=== PATIENT | male | born 2005 | race Caucasian/White ===

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

== ENCOUNTER 2024-04-12 17:00 | Emergency (ER) | payer OTHER ==
--- OUTSIDE RECORDS SUMMARY | 2024-04-12 17:03 | XMS REPORT | Continuity of Care Document ---
Author Name Unknown Address [address] [facility] [facility] [address] [place] [address] [facility] thconnect Address [address] [place] [address] Care Team Providers Care Department Store Salesperson Name Role Phone Wei Weiss Primary Care Physician [phone] JC GARZON Attending Clinician Unavailable Jc Garzon MD Attending Clinician [phone] Jovan Rhodes MD Attending Clinician [phone] Only, Adc Test Attending Clinician Unavailable Jose De Jesus Zaman MD Attending Clinician [phone] Doctor Unassigned, [place] Attending Clinician U navailable JC GARZON Admitting Clinician Unavailable Jc Garzon MD Admitting Clinician [phone] Payers Payer Name Policy Type Policy Number Effective Date Expirati on Date Source [employer] [id number] 2016 00:00:00 [employer] [place] OUT OF STATE [id number] 2017 00:00:00 Problems Condition Name Condition Details Condition Category Status Onset Date Resolution Date Last Treatment Date Treating Clinician Comments Source Non-recurr ent inguinal hernia without obstructio n or gangrene, unspecifie d laterality Non-recurr ent inguinal hernia without obstructio n or gangrene, unspecifie d laterality Disease Active 05-16 00:00: 00 Overview: Formattin g of this note might be different from the original. Added automatic ally from request for surgery [id number] [facility] No known active problems No known active problems Disease [facility] Allergies, Adverse Reactions, Alerts Allergy Name Allergy Type Status Severity Reaction(s) Onset Date Inactive Date Treating Clinician Comments Source NO KNOWN ALLERGIE S Drug Class Active [facility] Social History Social Habit Start Date Stop Date Quantity Comments Source [facility] to SARS-CoV-2 (event) 2022-10-14 00:00:00 2022-10-24 08:49:00 Not sure [facility] History of Social function 2020-06-08 00:00:00 2020-06-08 00:00:00 [facility] Tobacco use and exposure 2020-06-08 00:00:00 2020-06-08 00:00:00 Never used [facility] Sex Assigned At 2005 00:00:00 2005 00:00:00 [facility] Smoking Status Start Date Stop Date Source Tobacco smoking consumption unknown [facility] Never smoker [facility] Medications Ordered Medication Name Filled Medication Name Start Date Stop Date Current Medication? Ordering Clinician Indication Dosage Frequency Signature (SIG) Comments Components Source guanFACINE (Intuniv) 3 mg 24 hr tablet 10-24 09:08: 24 Yes Take by mouth. [facility] sertraline (Zoloft) 100 MG tablet 10-24 09:08: 24 Yes 100mg Take 100 mg by mouth. [facility] ARIPiprazol e (Abilify) 5 MG tablet 10-24 09:08: 24 Yes 5mg Take 5 mg by mouth. [facility] cloNIDine (Catapres) 0.2 MG tablet 10-24 09:08: 24 Yes .2mg Take 0.2 mg by mouth. [facility] Flovent HFA 110 MCG/ACT inhaler 10-16 00:00: 00 Yes [facility] cetirizine (ZyrTEC) 10 MG tablet 10-01 00:00: 00 Yes 10mg QD Take 10 mg by mouth 1 (one) time each day. [facility] Adderall XR 25 MG 24 hr capsule 2023-0 2-13 00:00: 00 Yes [facility] albuterol (2.5 MG/3ML) 0.083% nebulizer solution 1-31 00:00: 00 Yes INHALE 1 VIAL EVERY FOUR TO SIX HOURS NEEDED [facility] carBAMazepi ne (TEGretol) 200 MG tablet 2021-08 2-14 00:00: 00 Yes 200mg Q.5D Take 200 mg by mouth in the morning and 200 mg before bedtime. [facility] QUEtiapine (SEROquel) 100 MG tablet 8-05 00:00: 00 Yes Take 1.5 tablets by mouth nightly [facility] ARIPiprazol e (ABILIFY) 5 mg tablet 2019-08 0 21:07: 49 Yes 5mg Take 5 mg by mouth daily. [facility] Guanfacine (INTUNIV) 3 mg Tb24 2019-08 0 21:07: 49 Yes Take by mouth. [facility] amphetamine -dextroamph etamine (AMPHETAMIN E SALT COMBO) 5 mg tablet 2019-08 21:07: 49 Yes 25mg Take 25 mg by mouth daily. [facility] cloNIDine 0.2 mg tablet 2019-08 21:07: 49 Yes .2mg Take 0.2 mg by mouth at bedtime. [facility] SERTraline (ZOLOFT) 100 mg tablet 2019-08 21:07: 49 Yes 100mg Take 100 mg by mouth daily. [facility] SERTraline (ZOLOFT) 25 mg tablet 2019-08 21:07: 49 Yes 25mg Take 25 mg by mouth at bedtime. [facility] fluticasone propionate (FLOVENT INHALE) 2019-08 0 21:07: 49 Yes Inhale 2 (two) times daily. [facility] albuterol sulfate (PROVENTIL INHALE) 2019-08 0 21:07: 49 Yes Inhale as needed. [facility] carBAMazepi ne (TEGRETOL) 200 mg tablet 2019-08 0 21:07: 49 Yes 200mg Take 200 mg by mouth every 12 (twelve) hours. [facility] risperiDONE 0.5 mg tablet 2019-08 21:07: 49 Yes .5mg Take 0.5 mg by mouth daily. [facility] ibuprofen (ADVIL CHILDREN'S) 100 mg/5 mL suspension 635 mg 2019-08 20:46: 21 Yes 10mg/kg 635 mg (10 mg/kg ?63.5 kg), Oral, Q6HPRN, Starting Sat06/07/20 at 1546, Until Discontinu ed, Routine, Pain (scale 1-3), DSU Recovery [facility] FENTanyl PF (SUBLIMAZE (PF)) injection 25 mcg 2019-08 19:41: 01 Yes 25ug 25 mcg, Slow IV Push, Q5MIN PRN, 4 doses, Starting Sat06/07/20 at 1441, Until Discontinu ed, Routine, Pain (scale 7-10), PACU [facility] ondansetron (ZOFRAN (PF)) injection 4 mg 2019-08 19:41: 01 Yes 4mg 4 mg, Slow IV Push, PRN, 1 dose, Starting 06/07/20 at 1441, Until Discontinu ed, Routine, Nausea and Vomiting (N/V), PACU [facility] bupivacaine (preserv free) (SENSORCAIN E MPF) 0.25 % (2.5 mg/mL) injection 2019-08 18:51: 00 Yes PRN, Starting Sat06/07/20 at 1351, Until Discontinu ed, Routine, Intra-op [facility] ARIPiprazol e (ABILIFY) 5 mg tablet 2019-08 16:07: 49 Yes 5mg Take 5 mg by mouth daily. [facility] Guanfacine (INTUNIV) 3 mg Tb24 2019-08 16:07: 49 Yes Take by mouth. [facility] amphetamine -dextroamph etamine (AMPHETAMIN E SALT COMBO) 5 mg tablet 2019-08 16:07: 49 Yes 25mg Take 25 mg by mouth daily. [facility] cloNIDine 0.2 mg tablet 2019-08 16:07: 49 Yes .2mg Take 0.2 mg by mouth at bedtime. [facility] SERTraline (ZOLOFT) 100 mg tablet 2019-08 16:07: 49 Yes 100mg Take 100 mg by mouth daily. [facility] SERTraline (ZOLOFT) 25 mg tablet 2019-08 16:07: 49 Yes 25mg Take 25 mg by mouth at bedtime. [facility] fluticasone propionate (FLOVENT INHALE) 2019-08 16:07: 49 Yes Inhale 2 (two) times daily. [facility] carBAMazepi ne (TEGRETOL) 200 mg tablet 2019-08 16:07: 49 Yes 200mg Take 200 mg by mouth every 12 (twelve) hours. [facility] risperiDONE 0.5 mg tablet 2019-08 16:07: 49 Yes .5mg Take 0.5 mg by mouth daily. [facility] HYDROcodone -acetaminop hen (NORCO) 5-325 mg tablet 2019-08 00:00: 00 Yes [id number] 1{tbl} Take 1 tablet by mouth every 6 (six) hours as needed for Pain (scale 4-6). Indication s: acute pain [facility] acetaminoph en (TYLENOL) 325 mg tablet 2019-08 00:00: 00 06-07 00:00 :00 No [id number] 650mg Take 2 tablets by mouth every 6 (six) hours as needed for Pain (scale 1-3). [facility] ibuprofen (MOTRIN IB) 200 mg tablet 2019-08 00:00: 00 06-07 00:00 :00 No [id number] 400mg Take 2 tablets by mouth every 6 (six) hours as needed for Pain (scale 1-3). [facility] cloNIDine 0.2 mg tablet 2019-08 12:50: 48 Yes .2mg Take 0.2 mg by mouth at bedtime. [facility] SERTraline (ZOLOFT) 100 mg tablet 2019-08 12:50: 48 Yes 100mg Take 100 mg by mouth daily. [facility] SERTraline (ZOLOFT) 25 mg tablet 2019-08 12:50: 48 Yes 25mg Take 25 mg by mouth at bedtime. [facility] fluticasone propionate (FLOVENT INHALE) 2019-08 12:50: 48 Yes Inhale 2 (two) times daily. [facility] albuterol sulfate (PROVENTIL INHALE) 2019-08 12:50: 48 Yes Inhale as needed. [facility] carBAMazepi ne (TEGRETOL) 200 mg tablet 2019-08 12:50: 48 Yes 200mg Take 200 mg by mouth every 12 (twelve) hours. [facility] risperiDONE 0.5 mg tablet 2019-08 12:50: 48 Yes .5mg Take 0.5 mg by mouth daily. [facility] Guanfacine (INTUNIV) 3 mg Tb24 2019-08 20:52: 50 Yes Take by mouth. [facility] amphetamine -dextroamph etamine (AMPHETAMIN E SALT COMBO) 5 mg tablet 2019-08 20:52: 50 Yes 25mg Take 25 mg by mouth daily. [facility] ARIPiprazol e (ABILIFY) 5 mg tablet 2019-08 20:49: 06 Yes 5mg Take 5 mg by mouth daily. [facility] ARIPiprazol e (ABILIFY) 5 mg tablet 02-21 15:38: 54 Yes 5mg Take 5 mg by mouth daily. [facility] Guanfacine (INTUNIV) 3 mg Tb24 02-21 15:38: 54 Yes Take by mouth. [facility] amphetamine -dextroamph etamine (AMPHETAMIN E SALT COMBO) 5 mg tablet 02-21 15:38: 54 Yes 5mg Take 5 mg by mouth daily. [facility] Vital Signs Vital Name Observation Time Observation Value Comments S riki Body height 2022-10-24 15:02:00 [facility] Body weight 2022-10-24 15:02:00 [facility].4 [facility] BMI 2022-10-24 15:02:00 28.26 kg/m2 [facility] Body mass index (BMI) [Percentile] Per age and sex 2022-10-24 15:02:00 92.98 % [facility] Body temperature 2020-07-04 20:58:00 36.94 [facility] Body weight 2020-07-04 20:58:00 64.9 kg [facility] Systolic blood pressure 2020-06-07 20:30:00 110 mm[Hg] [facility] Diastolic blood pressure 2020-06-07 20:30:00 72 mm[Hg] [facility] Heart rate 2020-06-07 20:30:00 67 /min [facility] Respiratory rate 2020-06-07 20:30:00 6 /min [facility] Oxygen saturation in Arterial blood by Pulse oximetry 2020-06-07 20:30:00 97 /min [facility] Body temperature 2020-06-07 19:30:00 35.78 [facility] Body height 2020-06-07 14:57:00 165.1 cm [facility] Body weight 2020-06-07 14:57:00 63.5 kg [facility] BMI 2020-06-07 14:57:00 23.30 kg/m2 [facility] Body temperature 2020-05-16 18:02:00 36.78 [facility] Body weight 2020-05-16 18:02:00 65 kg [facility] Procedures Procedure Date / Time Performed Performing Clinicia n Source US SCROTUM AND CONTENTS 2020-06-02 23:49:53 Jc Garzon [facility] CONSENT/REFUSAL FOR DIAGNOSIS AND TREATMENT 2020-06-02 21:48:04 Doctor Unassigned, [place] [facility] ASSIGNMENT OF BENEFITS 2020-06-02 21:47:48 Dockev r Unassigned, [place] [facility] ASSIGNMENT OF BENEFITS 2020-05-16 17:47:57 Jimto r Unassigned, [place] [facility] POCT URINALYSIS AUTO 2020-05-16 00:00:00 Riki Garzon [facility] Encounters Start Date/Time End Date/Time Encounter Type Admission Type Attending [facility] Facility Care Department Encounter ID Source 2022-11-08 14:48:24 Outpatient [facility] [id number] [facility] 2022-10-24 08:51:46 Outpatient [facility] [id number] [facility] 2022-10-18 13:45:24 Outpatient [facility] [id number] [facility] 2021-06-16 22:22:44 Outpatient JENNIFER GARZONNATHAN [facility] [id number] [facility] 2021-06-16 19:49:14 Outpatient BECKY JC [facility] [id number] [facility] 2024-04-10 11:12:59 2024-04-10 11:12:59 Outpatient [facility] S[facility] [id number] Peter Baugh 2024-03-19 17:29:26 2024-03-19 17:29:26 Outpatient SFA SFA [id number] Peter Baugh 2020-06-02 00:00:00 2024-02-04 02:22:16 Mobile Device Encounter Jennifer Garzonnathan [facility] [id number] [id number] [facility] 2024-01-22 17:21:40 2024-01-22 17:21:40 Outpatient SFA SFA [id number] Peter Baugh 2023-11-15 15:42:08 2023-11-15 15:42:08 Outpatient SFA SFA [id number] Peter So Amauri 2023-11-01 13:17:23 2023-11-01 13:17:23 Outpatient SFA SFA [id number] Peter Baugh 2023-09-26 10:33:38 2023-09-26 10:33:38 Outpatient SFA SFA [id number] Peter So Amauri 2023-08-30 14:05:13 2023-08-30 14:05:13 Outpatient SFA SFA [id number] Peter Baugh 2023-06-20 13:49:02 2023-06-20 13:49:02 Outpatient SFA [facility] [id number] Peter Baugh 2023-04-17 13:00:19 2023-04-17 13:00:19 Outpatient SFA [facility] [id number] Peter Baugh 2022-12-26 15:45:32 2022-12-26 15:45:32 Outpatient SFA [facility] [id number] Peter So Amauri 2022-12-13 17:03:33 2022-12-13 17:03:33 Outpatient SFA [facility] [id number] Peter So Amauri 2022-12-04 14:48:51 2022-12-04 14:48:51 Outpatient SFA [facility] [id number] Peter Baugh 2022-11-15 13:54:59 2022-11-15 13:54:59 Outpatient SFA [facility] [id number] Peter So Amauri 2022-11-08 16:06:33 2022-11-08 16:06:33 Outpatient SFA [facility] [id number] Peter So Aamuri 2022-10-24 08:45:00 2022-10-24 14:10:43 Office Visit JaswantyinkaJovan [facility] [[email or web address] [id number] [facility] [id number] [facility] 2022-08-21 16:45:11 2022-08-21 16:45:11 Outpatient SFA [facility] [id number] Peter So [place] 2020-07-04 14:45:00 2020-07-04 14:45:00 Outpatient R JC GARZON [facility] [id number] [facility] 2020-07-04 14:28:36 2020-07-04 14:43:36 Office Visit Jc Garzon [facility] Office Building [id number] [id number] [id number] [facility] 2020-06-07 08:53:00 2020-06-07 15:50:00 Hospital Encounter BarnhartJc culp [facility] [id number] [id number] [id number] [id number] [facility] 2020-06-06 11:24:06 2020-06-06 11:39:06 Laboratory Only Only, Adc Test Jose De Jesus Zaman [facility] [id number] 350.1.13.10 [id number] [id number] [facility] 2020-06-06 11:15:00 2020-06-06 11:15:00 Outpatient R [facility] [id number] [facility] 2020-06-02 16:50:42 2020-06-02 23:59:00 Hospital Encounter Jennifer Garzonnathan [facility] [id number] [id number] [id number] [id number] [facility] 2020-05-16 12:48:48 2020-06-02 11:35:39 Office Visit Jc Garzon [facility] [id number] [id number] [id number] [id number] [facility] 2020-06-02 00:00:00 2020-06-02 00:00:00 Outpatient R BECKY JC [facility] [id number] [facility] 2020-05-16 13:00:00 2020-05-16 13:00:00 [id number] 2020-05-16 00:00:00 2020-05-16 00:00:00 Orders Only Doctor Unassigned, [place] [facility] [id number] [id number] [id number] [id number] [facility] 2020-05-16 00:00:00 2020-05-16 00:00:00 Letter (Out) Jc Garzon [facility] Building [id number] [id number] [id number] [id number] [facility] Results Test Description Test Time Test Comments Results Result Co mments Source TSH, THIRD [id number] 04:20:48* Test Item Value Reference Range Interpretation Comme nts TSH, THIRD GENERATION (test code = 2821) 0.802 UIU/ML 0.400-4.100 COMPREHENSIVE METABOLIC [id number] 04:20:16* Test Item Value Reference Range Interpretation Comme nts GLUCOSE (test code = 2217) 96 MG/DL 70-99 BUN (test code = 2207) 18 MG/DL 6-20 CREATININE (test code = 2214) 0.93 MG/DL 0.70-1.30 eGFR (2020 CKD-EPI) (test code = 36820) 121 ML/MIN/1.73 >60 CALC BUN/CREAT (test code = 2235) 19 RATIO 6-28 SODIUM (test code = 2231) 144 MEQ/L 133-146 POTASSIUM (test code = 2228) 4.5 MEQ/L 3.5-5.4 CHLORIDE (test code = 2215) 105 MEQ/L 95-107 CARBON DIOXIDE (test code = 2206) 23 MEQ/L 19-31 CALCIUM (test code = 2209) 9.8 MG/DL 8.5-10.5 PROTEIN, TOTAL (test code = 222) 7.3 G/DL 6.1-8.3 ALBUMIN (test code = 2201) 4.8 G/DL 3.5-5.2 CALC GLOBULIN (test code = 2240) 2.5 G/DL 2.0-3.5 CALC A/G RATIO (test code = 2234) 1.9 RATIO 1.0-2.6 BILIRUBIN, TOTAL (test code = 2207) 0.4 MG/DL <=1.2 ALKALINE PHOSPHATASE (test code = 2204) 97 U/L 56-182 AST (test code = 2218) 32 U/L 9-50 ALT (test code = 2219) 50 U/L 5-50 LIPID [id number] 04:20:16* Test Item Value Reference Range Interpretation Comme nts CHOLESTEROL (test code = 2210) 140 MG/DL <200 TRIGLYCERIDES (test code = 2232) 150 MG/DL <150 H HDL CHOLESTEROL (test code = 2220) 39 MG/DL >39 L CALC LDL CHOL (test code = 2237) 76 MG/DL <100 NOTE: CALCULATED LDL IS BASED ON REID-VALLADARES METHOD WHICHINCLUDES ADJUSTABLE TRIGLYCERIDE:VLDL CHOLESTEROL RATIO.THIS FACTOR VARIES BY MEASURED TRIGLYCERIDE AND NON-HDLCHOLESTEROL CONCENTRATIONS WITH INCREASED CALCULATED LDL SEENIN HIGHER TRIGLYCERIDE OR LOWER NON-HDL SPECIMENS. FOR MOREINFORMATION, SEE CLIENT ANNOUNCEMENT AT [email or web address] RISK RATIO LDL/HDL (test code = 2238) 1.95 RATIO <3.55 CBC W/AUTO DIFF WITH [id number] 03:03:55* Test Item Value Reference Range Interpretation [...] = 1065) 0.0 /100 WBC'S See_Comment [Automated Affinioa ge] The system which generated this result [...] 0.00-0.10 ABS NUCLEATED RBCS (test code = 97073) 0.00 K/UL 0.00-0.11 CT/NG, NAAT, [id number] 15:55:19* Test Item Value Reference Range Interpretation Comme nts CHLAMYDIA, NAAT, URINE (test code = 93656) NEGATIVE NEGATIVE Testing is perfo rmed with Brian NAILA 6800/8800 systems usingreal-time polymerase chain reaction (PCR) method. A negative result does not exclude low level infection, specimensampling error, or collection error. GONORRHEA, NAAT, URINE (test code = 62927) NEGATIVE NEGATIVE Testing is perfo rmed with Brian NAILA 6800/8800 systems usingreal-time polymerase chain reaction (PCR) method. A negative result does not exclude low level infection, specimensampling error, or collection error. RPR REFLEX TO T. PALLIDUM - [id number] 03:40:20* Test Item Value Reference Range Interpretation Comme nts RPR (test code = 31960) NON-REACTIVE NON-REACTIVE RPR TITER (test code = 3500) NOT INDIC. TITER NOT INDIC. HIV 1/2 4TH GEN, RFLX [id number] 03:36:50* Test Item Value Reference Range Interpretation Comme nts HIV 1/2 4TH GEN, RFLX CONF ( test code = 3514) NON-REACTIVE NON-REACTIVE HEPATITIS PANEL, [id number] 03:36:50* Test Item Value Reference Range Interpretation Comme nts HEPATITIS A IgM (test code = 98765) NON-REACTIVE NON-REACTIVE HEPATITIS B CORE IgM (test code = 4644) NON-REACTIVE NON-REACTIVE HEPATITIS B SURF AG (test code = 2739) NON-REACTIVE NON-REACTIVE HEPATITIS C ANTIBODY (test code = 4675) NON-REACTIVE NON-REACTIVE INTERPRETATION HEPATITIS A: (test code = 2552) (NOTE) Hepatitis A serology shows no evidence of acute hepatitis A. INTERPRETATION HEPATITIS B: (test code = 46129) (NOTE) Hepatitis B serology shows no evidence of acute hepatitis B andno indication of exposure to hepatitis B virus in the previous landon eight months. INTERPRETATION HEPATITIS C: (test code = 36966) (NOTE) Hepatitis C serology shows no evidence of exposure to hepatitisC virus at this time. It can take up to 12 months after exposure tothe hepatitis C virus for antibodies to become detectable in the blood in certain patients. HERPES SIMPLEX 1 AB, [id number] 03:36:50* Test Item Value Reference Range Interpretation Comme nts HERPES SIMPLEX 1 AB, IgG (test code = 39232) 7.400 INDEX SEE BELOW H INTERPRETATION U NITS RANGE ----- ----- NON-REACTIVE INDEX <1.000 REACTIVE INDEX >=1.000 HERPES SIMPLEX 2 AB, [id number] 03:36:50* Test Item Value Reference Range Interpretation Comme nts HERPES SIMPLEX 2 AB, IgG (test code = 31057) 0.072 INDEX SEE BELOW INTERPRETATION U NITS RANGE ----- ----- NON-REACTIVE INDEX <1.000 REACTIVE INDEX >=1.000 UNLESS OTHERWISE INDICATED, ALL TESTING PERFORMED AT [facility] [address] [place] [address] [employer] HELPER PRESERVES: NAVIN LAM M.D. CLIA NUMBER [id number] [facility] [place]. [id number] CULTURE, [id number] 16:27:10SPECIMEN NUMBER: [id number] CULTURE, URINE SPECIMEN NUMBER: [id number] SPECIMEN COMMENT: URINE SOURCE: URINE REPORT STATUS: FINAL ISOLATE NUMBER 1: IDENTIFICATION: 11/11/2022 10-50,000 CFU/ML STREPTOCOC CUS AGALACTIAE (GROUP B) ADDITIONAL OBSERVATIONS: PENICILLIN AND AMPICILLIN ARE DRUGS OF CHOICE FORTREATMENT OF B-HEMOLYTIC STREPTOCOCCAL INFECTIONS. SUSCEPTIBILITY TESTING OF PENICILLIN AND OTHER B-LACTAMS APPROVED BY THE [place] [employer]OD AND DRUG [employer]RATION FOR TREATMENT OF B-HEMOLYTIC STREPTOCOCCAL INFECTIONS NEED NOT BE PERFORMED ROUTINELY. ADDITIONAL OBSERVATIONS: 11/11/2022 <10,000 CFU/ML UROGENITAL ROSE PRESENT NO COMMON PATHOGENS [facility] has important pathology staff changes effective 10/17/2022. New pathology staff will provide uninterrupted, excellent patient care and clinical consultation. See URL: [email or web address]. UNLESS OTHERWISE INDICATED, ALL TESTING PERFORMED AT [facility] [address] [place] [address] [employer] HEL[employer] PRESERVES: NAVIN LAM M.D. CLIA NUMBER [id number] [place]. [id number], THIRD [id number] 06:15:03* Test Item Value Reference Range Interpretation Comme nts TSH, THIRD GENERATION (test code = 2821) 0.911 UIU/ML 0.500-4.300 [id number] 06:15:03* Test Item Value Reference Range Interpretation [...] 4.0-12.0 UNLESS OTHERWISE INDICATED, ALL TEST[facility] PERFORMED [facility] [address] [place] [address] [employer] HEL[employer] PRESERVES: SIRI COLEY M.D. CLIA NUMBER [id number] [place] [id number] LIPID [id number] 03:17:30* Test Item Value Reference Range Interpretation [...] SPECIMENS. FOR MOREINFORMATION, SEE CLIENT ANNOUNCEMENT AT [email or web address] /[email or web address] RISK RATIO LDL/HDL (test code = 2238) 2.37 RATIO <3.55 COMPREHENSIVE METABOLIC [id number] 03:17:30* Test Item Value Reference Range Interpretation Comme nts GLUCOSE (test code = 2217) 85 MG/DL 70-99 BUN (test code = 2207) 22 MG/DL 5-18 H CREATININE (test code = 221) 0.96 MG/DL 0.70-1.30 EFFECTIVE 07/31/2021, [facility] HAS IMPLEMENTED THE NKF-ASN RECOMMENDED KD-EPI EGFR REFIT CALCULATION THAT DOES NOT INCLUDE A COEFFICIENT FORRACE. FOR MORE INFORMATION, SEE ANNOUNCEMENT [email or web address] eGFR (2020 CKD-EPI) (test code = 11084) NO CALC ML/MIN/1.73 >60 NOTE: 2020 CKD-EPI [...] 95-107 CARBON DIOXIDE (test code = 2206) 29 MEQ/L 19-31 CALCIUM (test code = 2209) 10.3 MG/DL 8.4-10.2 H PROTEIN, TOTAL (test code = 2228) 8.2 G/DL 6.0-8.0 H ALBUMIN (test code = 2200) 5.1 G/DL 3.6-5.2 CALC GLOBULIN (test code = 2240) 3.1 G/DL 2.0-3.5 CALC A/G RATIO (test code = 2234) 1.6 RATIO 1.0-2.6 BILIRUBIN, TOTAL (test code = 7) 0.2 MG/DL See_Comment [Automated me ssage] The system which generated this result transmitted reference range: <=1.2. The reference range was not used to interpret this result as normal/abnormal. ALKALINE PHOSPHATASE (test code = 2204) 115 U/L 80-302 AST (test code = 2218) 15 U/L 9-55 ALT (test code = 2219) 19 U/L 5-50 HEMOGLOBIN [id number] 02:12:36* Test Item Value Reference Range Interpretation Comme nts HEMOGLOBIN A1c (test code = 54519) 5.0 % 4.2-5.6 CBC W/AUTO DIFF WITH [id number] 01:35:29* Test Item Value Reference Range Interpretation [...] 0.00-0.10 ABS NUCLEATED RBCS (test code = 19272) 0.00 K/UL 0.00-0.13 US SCROTUM AND [id number] 02:33:26No evidence for testicular torsion. No evidence for epididymo-orchitis. Questionable bowel loop in the superior right inguinal canal with Valsalvamaneuver. This may reflect an inguinal hernia, but issomewhat equivocal. RL: 460 AFC: [id number] Ordering physician: JC GARZON INDICATION: Right groin [...] inguinal hernia, but is somewhat equivocal.RL: 460AF: [id number] signed by Danielle Dubose MD, PhD at 06/02/2020 9:33 [facility] [id number] 18:10:00* Test Item Value Reference Range Interpretation [...] 3267) Lab Interpretation (test cod e = 39176-0) Normal [facility] URINALYSIS, [id number] 18:10:00 * Test Item Value Reference Range [...] 3267) Lab Interpretation (test cod e = [id number]) Normal [facility]
--- NOTE | 2024-04-12 17:41 | ER ---
Nurse's Notes [facility] [place], [place] Name: Avi Ellis Age: 18 yrs Sex: Male : 2005 Arrival Date: 04/12/2024 Time: 17:00 Bed IW8 Private MD: Diagnosis: Cutaneous abscess of right foot-paronychia, great toe Presentation: 04/12 17:37 Chief complaint: Patient states: "I have a toe infection for about 2 weeks". Pt reports aa5 pain and swelling around right great toenail. 17:37 Coronavirus screen: At this time, the client does not indicate any symptoms associated aa5 with coronavirus-19. Ebola Screen: Patient denies travel to an Ebola-affected area in the 21 days before illness onset. Initial Sepsis Screen: Does the patient meet any 2 criteria? No. Patient's initial sepsis screen is negative. Does the patient have a suspected source of infection? No. Patient's initial sepsis screen is negative. Risk Assessment: Do you want to hurt yourself or someone else? Patient reports no desire to harm self or others. Onset of symptoms was March 2024. 17:37 Acuity: ESTRADA 4 aa5 17:37 Method Of Arrival: Ambulatory aa5 Historical: - Allergies: 17:38 No Known Allergies; aa5 - PMHx: 17:38 Anxiety; Asthma; depressive disorder; aa5 - PSHx: 17:38 Adenoid excision; hernia repair; wisdom teeth (d ); aa5 - Immunization history:: Adult Immunizations unknown. - Infectious Disease History:: Denies. - Social history:: Smoking status: Patient denies any tobacco usage or history of. Vital Signs: 17:37 BP 124 / 86; Pulse 97; Resp 18 S; Temp 97.6(TE); Pulse Ox 99% on R/A; Weight 97.98 kg aa5 (R); Height 5 ft. 4 in. (R); 17:37 Body Mass Index 37.08 (97.98 kg, 162.56 cm) - Percentile 99.1 % aa5 ED Course: 17:04 Patient arrived in ED. ra3 17:31 [facility] kb 17:31 Ban Calhoun MD is Attending Physician. kb 17:37 Arm band placed on. aa5 17:40 Triage completed. aa5 Administered Medications: No medications were administered Outcome: 17:41 Discharge ordered by MD. arias 17:45 Patient left the ED. aa5 Signatures: Karlee Brower FNP-C FNP-Patti Mendoza, RN RN aa5 Elmira Li ra3 Corrections: (The following items were deleted from the chart) 17:41 17:37 BP 124 / 86; Pulse 97bpm; Resp 18bpm; Spontaneous; Pulse Ox 99% RA; Temp 97.6F aa5 Temporal; aa5
--- NOTE | 2024-04-12 17:41 | EDPHYS ---
Physician Documentation [facility] Name: Avi Ellis Age: 18 yrs Sex: Male : 2005 Arrival Date: 04/12/2024 Time: 17:00 Bed IW8 Private MD: ED Physician Ban Calhoun HPI: 04/12 17:44 This 18 yrs old Male presents to ER via Ambulatory with complaints of toe infection. kb 17:44 Pt is a 18 year old male who presents for infection in right great toe that started 2 kb weeks ago. States he just hasn't been able to come due to his work schedule. States the area started draining pus and blood yesterday. Denies fever. Historical: - Allergies: 17:38 No Known Allergies; aa5 - PMHx: 17:38 Anxiety; Asthma; depressive disorder; aa5 - PSHx: 17:38 Adenoid excision; hernia repair; wisdom teeth (d ); aa5 - Immunization history:: Adult Immunizations unknown. - Infectious Disease History:: Denies. - Social history:: Smoking status: Patient denies any tobacco usage or history of. ROS: 17:43 Constitutional: As per HPI kb Exam: 17:43 Constitutional: This is a well developed, well nourished patient who is awake, alert, kb and in no acute distress. Head/Face: Normocephalic, atraumatic. ENT: Moist Mucous membranes Cardiovascular: Regular rate Respiratory: Respirations even and unlabored. No increased work of breathing. Talking in full sentences MS/ Extremity: Pulses equal, no cyanosis. Neurovascular intact. Full, normal range of motion. Neuro: Awake and alert, GCS 15, oriented to person, place, time, and situation. Moves all extremities. Normal gait. 17:43 Skin: abscess, that is small, of the Right first toenail, with drainage, that is purulent, Vital Signs: 17:37 BP 124 / 86; Pulse 97; Resp 18 S; Temp 97.6(TE); Pulse Ox 99% on R/A; Weight 97.98 kg aa5 (R); Height 5 ft. 4 in. (R); 17:37 Body Mass Index 37.08 (97.98 kg, 162.56 cm) - Percentile 99.1 % aa5 MDM: 17:31 Patient medically screened. kb 17:44 Differential diagnosis: cellulitis, paronychia, abscess. Data reviewed: vital signs, kb nurses notes. Counseling: I had a detailed discussion with the patient and/or guardian regarding the historical points, exam findings, and any diagnostic results supporting the discharge/admit diagnosis, the need for outpatient follow up, a family practitioner, to return to the emergency department if symptoms worsen or persist or if there are any questions or concerns that arise at home. Administered Medications: No medications were administered Disposition Summary: 04/12/24 17:41 Discharge Ordered Notes: Location: Home kb Condition: Stable kb Diagnosis - Cutaneous abscess of right foot - paronychia, great toe kb Followup: kb - With: Emergency Department - When: As needed - Reason: Worsening of condition Followup: kb - With: Private Physician - When: 2 - 3 days - Reason: Recheck today's complaints, Continuance of care, Re-evaluation by your physician Discharge Instructions: - Discharge Summary Sheet kb - Paronychia, [id number] kb Forms: - Medication Reconciliation Form kb - Antibiotic Education kb - Prescription Opioid Use kb - Patient Portal Instructions kb - Leadership Thank You Letter kb Prescriptions: - Bactrim DS 800-160 mg Oral Tablet - take 1 tablet ORAL route every 12 hours for 10 days; 20 tablet; Refills: 0, kb Product Selection Permitted Signatures: Karlee Brower, FARNAZ ROMANP-Patti Mendoza, RN RN aa5
[2024-04-12 17:58] VITALS: BP 124/86; TEMP 97.6; O2SAT 99
== END 2024-04-12 17:45 | disposition home or self-care (01) ==
LOC: ER 17:00
DX: L03.031 Cellulitis of right toe (principal)
CPT/HCPCS: 99281

== ENCOUNTER 2024-12-12 16:18 | Emergency (ER) | payer OTHER, SELFPAY ==
--- OUTSIDE RECORDS SUMMARY | 2024-12-12 16:22 | XMS REPORT | Continuity of Care Document ---
Author Name Unknown Address [address] [facility] [place] [address] [facility] Address [address] [facility] [place] [address] Care Team Providers Care Senior Behavioral Scientist Name Role Phone Wei Weiss Primary Care Physician [phone] JC GARZON Attending Clinician Unavailable Kenney Jade MD Attending Clinician [phone] KENNEY JADE Attending Clinician Unavailable Jc Garzon MD Attending Clinician [phone] Jovan Rhodes MD Attending Clinician [phone] Only, Adc Test Attending Clinician Unavailable Jose De Jesus Zaman MD Attending Clinician [phone] Doctor Unassigned, [facility] Attending Clinician U navailable JC GARZON Admitting Clinician Unavailable Jc Garzon MD Admitting Clinician [phone] Payers Payer Name Policy Type Policy Number Effective Date Expirati on Date Source [employer] [id number] 2016 00:00:00 [facility] [id number] 2017 00:00:00 Problems Condition Name Condition Details [...] Added automatic ally from request for surgery [id number] [facility] No known active problems No known active problems Disease [facility] Allergies, Adverse Reactions, Alerts Allergy Name Allergy Type Status Severity Reaction(s) Onset Date Inactive Date Treating Clinician Comments Source NO KNOWN ALLERGIE S Drug Class Active [facility] Social History Social Habit Start Date Stop Date Quantity Comments Source [facility] SARS-CoV-2 (event) 2022-10-14 00:00:00 2022-10-24 08:49:00 Not sure [facility] History of Social function 2020-06-08 00:00:00 2020-06-08 00:00:00 [facility] Tobacco use and exposure 2020-06-03 00:00:00 2020-06-03 00:00:00 Smokeless tobacco non-user [facility] Sex Assigned At 2005 00:00:00 2005 00:00:00 [facility] Smoking Status Start Date Stop Date Source Tobacco smoking consumption unknown [facility] Never smoked tobacco [facility] Medications Ordered Medication Name Filled Medication Name Start Date Stop Date Current Medication? Ordering Clinician Indication Dosage Frequency Signature (SIG) Comments Components Source cloNIDine 0.2 mg tablet 05-12 12:01: 44 05-12 00:00 :00 No .2mg Take 1 tablet by mouth at bedtime. [facility] carBAMazepi ne (TEGRETOL) 200 mg tablet 05-12 12:01: 41 05-12 00:00 :00 No 200mg Take 200 mg by mouth every 12 (twelve) hours. [facility] amphetamine -dextroamph etamine (AMPHETAMIN E SALT COMBO) 5 mg tablet 05-12 12:01: 38 05-12 00:00 :00 No 25mg Take 5 tablets by mouth in the morning. [facility] Guanfacine (INTUNIV) 3 mg Tb24 05-12 12:01: 05 05-12 00:00 :00 No Take by mouth. [facility] albuterol sulfate (PROVENTIL INHALE) 05-12 12:01: 00 Yes Inhale as needed. [facility] SERTraline (ZOLOFT) 100 mg tablet 05-12 12:00: 49 05-12 00:00 :00 No 100mg Take 1 tablet by mouth in the morning. [facility] risperiDONE 0.5 mg tablet 05-12 12:00: 46 05-12 00:00 :00 No .5mg Take 1 tablet by mouth in the morning. [facility] SERTraline (ZOLOFT) 25 mg tablet 05-12 12:00: 40 05-12 00:00 :00 No 25mg Take 1 tablet by mouth at bedtime. [facility] ARIPiprazol e (ABILIFY) 5 mg tablet 05-12 11:59: 51 05-12 00:00 :00 No 5mg Take 1 tablet by mouth in the morning. [facility] ABILIFY MAINTENA 400 mg SSRR injection 03-20 00:00: 00 Yes INJECT 1 SYRINGE INTRAMUSCU LAR ONCE A MONTH [facility] guanFACINE (Intuniv) 3 mg 24 hr tablet 10-24 09:08: 24 Yes Take by mouth. [facility] sertraline (Zoloft) 100 MG tablet 10-24 09:08: 24 Yes 100mg Take 100 mg by mouth. [facility] ARIPiprazol e (Abilify) 5 MG tablet 10-24 09:08: 24 Yes 5mg Take 5 mg by mouth. [facility] cloNIDine (Catapres) 0.2 MG tablet 10-24 09:08: 24 Yes .2mg Take 0.2 mg by mouth. [facility] Flovent HFA 110 MCG/ACT inhaler 10-16 00:00: 00 Yes [facility] cetirizine (ZyrTEC) 10 MG tablet 2- 00:00: 00 Yes 10mg QD Take 10 mg by mouth 1 (one) time each day. [facility] Adderall XR 25 MG 24 hr capsule 2- 00:00: 00 Yes [facility] albuterol (2.5 MG/3ML) 0.083% nebulizer solution 1-31 00:00: 00 Yes INHALE 1 VIAL EVERY FOUR TO SIX HOURS NEEDED [facility] carBAMazepi ne (TEGretol) 200 MG tablet 2021-08 214 00:00: 00 Yes 200mg Q.5D Take 200 mg by mouth in the morning and 200 mg before bedtime. [facility] QUEtiapine (SEROquel) 100 MG tablet 8-05 00:00: 00 Yes Take 1.5 tablets by mouth nightly [facility] ARIPiprazol e (ABILIFY) 5 mg tablet 2019-08 21:07: 49 Yes 5mg Take 5 mg by mouth daily. [facility] Guanfacine (INTUNIV) 3 mg Tb24 2019-08 0 21:07: 49 Yes Take by mouth. [facility] amphetamine -dextroamph etamine (AMPHETAMIN E SALT COMBO) 5 mg tablet 2019-08 21:07: 49 Yes 25mg Take 25 mg by mouth daily. [facility] cloNIDine 0.2 mg tablet 2019-08 21:07: 49 Yes .2mg Take 0.2 mg by mouth at bedtime. [facility] SERTraline (ZOLOFT) 100 mg tablet 2019-08 21:07: 49 Yes 100mg Take 100 mg by mouth daily. [facility] SERTraline (ZOLOFT) 25 mg tablet 2019-08 21:07: 49 Yes 25mg Take 25 mg by mouth at bedtime. [facility] fluticasone propionate (FLOVENT INHALE) 2019-08 21:07: 49 Yes Inhale 2 (two) times daily. [facility] albuterol sulfate (PROVENTIL INHALE) 2019-08 21:07: 49 Yes Inhale as needed. [facility] carBAMazepi ne (TEGRETOL) 200 mg tablet 2019-08 21:07: 49 Yes 200mg Take 200 mg by mouth every 12 (twelve) hours. [facility] risperiDONE 0.5 mg tablet 2019-08 21:07: 49 Yes .5mg Take 0.5 mg by mouth daily. [facility] ibuprofen (ADVIL CHILDREN'S) 100 mg/5 mL suspension 635 mg 2019-08 20:46: 21 Yes 10mg/kg 635 mg (10 mg/kg ?63.5 kg), Oral, Q6HPRN, Starting Sat06/07/20 at 1546, Until Discontinu ed, Routine, Pain (scale 1-3), [facility] Recovery [facility] FENTanyl PF (SUBLIMAZE (PF)) injection 25 mcg 2019-08 19:41: 01 Yes 25ug 25 mcg, Slow IV Push, Q5MIN PRN, 4 doses, Starting 06/07/20 at 1441, Until Discontinu ed, Routine, Pain (scale 7-10), PACU [facility] ondansetron (ZOFRAN (PF)) injection 4 mg 2019-08 19:41: 01 Yes 4mg 4 mg, Slow IV Push, PRN, 1 dose, Starting 06/07/20 at 1441, Until Discontinu ed, Routine, Nausea and Vomiting (N/V), PACU [facility] bupivacaine (preserv free) (SENSORCAIN E MPF) 0.25 % (2.5 mg/mL) injection 2019-08 18:51: 00 Yes PRN, Starting e 06/07/20 at 1351, Until Discontinu ed, Routine, Intra-op [facility] ARIPiprazol e (ABILIFY) 5 mg tablet 2019-08 16:07: 49 Yes 5mg Take 5 mg by mouth daily. [facility] Guanfacine (INTUNIV) 3 mg Tb24 2019-08 16:07: 49 Yes Take by mouth. [facility] amphetamine -dextroamph etamine (AMPHETAMIN E SALT COMBO) 5 mg tablet 2019-08 16:07: 49 Yes 25mg Take 25 mg by mouth daily. [facility] cloNIDine 0.2 mg tablet 2019-08 16:07: 49 Yes .2mg Take 0.2 mg by mouth at bedtime. [facility] SERTraline (ZOLOFT) 100 mg tablet 2019-08 16:07: 49 Yes 100mg Take 100 mg by mouth daily. [facility] SERTraline (ZOLOFT) 25 mg tablet 2019-08 16:07: 49 Yes 25mg Take 25 mg by mouth at bedtime. [facility] fluticasone propionate (FLOVENT INHALE) 2019-08 16:07: 49 Yes Inhale 2 (two) times daily. [facility] carBAMazepi ne (TEGRETOL) 200 mg tablet 2019-08 16:07: 49 Yes 200mg Take 200 mg by mouth every 12 (twelve) hours. [facility] risperiDONE 0.5 mg tablet 2019-08 16:07: 49 Yes .5mg Take 0.5 mg by mouth daily. [facility] acetaminoph en (TYLENOL) 325 mg tablet 2019-08 00:00: 00 Yes [id number] 650mg Take 2 tablets by mouth every 6 (six) hours as needed for Pain (scale 1-3). [facility] ibuprofen (MOTRIN IB) 200 mg tablet 2019-08 00:00: 00 Yes [id number] 400mg Take 2 tablets by mouth every 6 (six) hours as needed for Pain (scale 1-3). [facility] HYDROcodone -acetaminop hen (NORCO) 5-325 mg tablet 2019-08 00:00: 00 05-12 00:00 :00 No [id number] 1{tbl} Take 1 tablet by mouth every 6 (six) hours as needed for Pain (scale 4-6). Indication s: acute pain [facility] cloNIDine 0.2 mg tablet 2019-08 12:50: 48 Yes .2mg Take 0.2 mg by mouth at bedtime. [facility] SERTraline (ZOLOFT) 100 mg tablet 2019-08 12:50: 48 Yes 100mg Take 100 mg by mouth daily. [facility] SERTraline (ZOLOFT) 25 mg tablet 2019-08 12:50: 48 Yes 25mg Take 25 mg by mouth at bedtime. [facility] fluticasone propionate (FLOVENT INHALE) 2019-08 12:50: 48 Yes Inhale 2 (two) times daily. [facility] albuterol sulfate (PROVENTIL INHALE) 2019-08 12:50: 48 Yes Inhale as needed. [facility] carBAMazepi ne (TEGRETOL) 200 mg tablet 2019-08 12:50: 48 Yes 200mg Take 200 mg by mouth every 12 (twelve) hours. [facility] risperiDONE 0.5 mg tablet 2019-08 12:50: 48 Yes .5mg Take 0.5 mg by mouth daily. [facility] Guanfacine (INTUNIV) 3 mg Tb24 2019-08 20:52: 50 Yes Take by mouth. [facility] amphetamine -dextroamph etamine (AMPHETAMIN E SALT COMBO) 5 mg tablet 2019-08 20:52: 50 Yes 25mg Take 25 mg by mouth daily. [facility] ARIPiprazol e (ABILIFY) 5 mg tablet 2019-08 20:49: 06 Yes 5mg Take 5 mg by mouth daily. [facility] ARIPiprazol e (ABILIFY) 5 mg tablet 02-21 15:38: 54 Yes 5mg Take 5 mg by mouth daily. [facility] Guanfacine (INTUNIV) 3 mg Tb24 02-21 15:38: 54 Yes Take by mouth. [facility] amphetamine -dextroamph etamine (AMPHETAMIN E SALT COMBO) 5 mg tablet 02-21 15:38: 54 Yes 5mg Take 5 mg by mouth daily. [facility] Vital Signs Vital Name Observation Time Observation Value Comments Darius lyn Systolic blood pressure 2024-05-12 16:57:00 126 mm[Hg] [facility] Diastolic blood pressure 2024-05-12 16:57:00 90 mm[Hg] [facility] Heart rate 2024-05-12 16:57:00 77 /min [facility] Body temperature 2024-05-12 16:57:00 36.78 Fani [facility] Respiratory rate 2024-05-12 16:57:00 20 /min [facility] Body height 2024-05-12 16:57:00 162.6 cm [facility] Body weight 2024-05-12 16:57:00 98.431 kg [facility] BMI 2024-05-12 16:57:00 37.25 kg/m2 [facility] Oxygen saturation in Arterial blood by Pulse oximetry 2024-05-12 16:57:00 96 /min [facility] Body height 2022-10-24 15:02:00 [facility] Body weight 2022-10-24 15:02:00 77.4 kg [facility] BMI 2022-10-24 15:02:00 28.26 kg/m2 [facility] Body mass index (BMI) [Percentile] Per age and sex 2022-10-24 15:02:00 92.98 % [facility] Body temperature 2020-07-04 20:58:00 36.94 Fani [facility] Body weight 2020-07-04 20:58:00 64.9 kg [facility] Systolic blood pressure 2020-06-07 20:30:00 110 mm[Hg] [facility] Diastolic blood pressure 2020-06-07 20:30:00 72 mm[Hg] [facility] Heart rate 2020-06-07 20:30:00 67 /min [facility] Respiratory rate 2020-06-07 20:30:00 6 /min [facility] Oxygen saturation in Arterial blood by Pulse oximetry 2020-06-07 20:30:00 97 /min [facility] Body temperature 2020-06-07 19:30:00 35.78 [facility] Body height 2020-06-07 14:57:00 165.1 cm [facility] Body weight 2020-06-07 14:57:00 63.5 kg [facility] BMI 2020-06-07 14:57:00 23.30 kg/m2 [facility] Body temperature 2020-05-16 18:02:00 36.78 [facility] Body weight 2020-05-16 18:02:00 65 kg [facility] Procedures Procedure Date / Time Performed Performing Clinicia n Source POCT URINALYSIS AUTO 2024-05-12 17:16:00 Andrés Jade [facility] JELANI,POST-VOID RES,US,NON-IMAGING 2024-05-12 00:00:00 Kenney Jade [facility] US SCROTUM AND CONTENTS 2020-06-02 23:49:53 Jc Garzon [facility] CONSENT/REFUSAL FOR DIAGNOSIS AND TREATMENT 2020-06-02 21:48:04 Doctor Unassigned, [facility] ASSIGNMENT OF BENEFITS 2020-06-02 21:47:48 Docto r Unassigned, [facility] ASSIGNMENT OF BENEFITS 2020-05-16 17:47:57 Docto r Unassigned, [place] POCT URINALYSIS AUTO 2020-05-16 00:00:00 Riki Garzon [facility] Encounters Start Date/Time End Date/Time Encounter Type Admission Type Attending Clinicians Care Facility Care Department Encounter ID Source 2022-11-08 14:48:24 Outpatient [facility] [id number] [facility] 2022-10-24 08:51:46 Outpatient [facility] [id number] [facility] 2022-10-18 13:45:24 Outpatient [facility] [id number] [facility] 2021-06-16 22:22:44 Outpatient JC GARZON [facility] [id number] [facility] 2021-06-16 19:49:14 Outpatient JC GARZON [facility] [id number] [facility] 2024-11-09 14:33:39 2024-11-09 14:33:39 Outpatient [facility] [id number] Peter Baugh 2024-06-02 10:55:05 2024-06-02 10:55:05 Outpatient [facility] [id number] Peter Baugh 2024-05-14 17:24:29 2024-05-14 17:24:[address] [facility] [id number] Peter Baugh 2024-05-12 14:30:00 2024-05-12 15:00:00 [facility] [id number]..[id number] 350.1.13.10 [id number] [id number] [facility] 2024-05-12 14:30:00 2024-05-12 14:30:00 Outpatient R JANINEAMNAKENNEY Farrar [facility] [id number] [facility] 2024-04-28 13:07:31 2024-04-28 13:07:31 Outpatient SFA SFA [id number] Peter Baugh 2024-04-24 13:07:01 2024-04-24 13:07:01 Outpatient SFA SFA [id number] Peter Baugh 2024-04-10 11:12:59 2024-04-10 11:12:59 Outpatient SFA SFA [id number] Peter Baugh 2024-03-19 17:29:26 2024-03-19 17:29:26 Outpatient SFA SFA [id number] Peter Baugh 2020-06-02 00:00:00 2024-02-04 02:22:16 Mobile Device Encounter Jc Garzon [facility] [id number] 350.1.13.10 [id number] [facility] 2024-01-22 17:21:40 2024-01-22 17:21:40 Outpatient SFA SFA [id number] Peter So [place] 2023-11-15 15:42:08 2023-11-15 15:42:08 Outpatient SFA SFA [id number] [facility] [place] 2023-11-01 13:17:23 2023-11-01 13:17:23 Outpatient SFA SFA [id number] [facility] [place] 2023-09-26 10:33:38 2023-09-26 10:33:38 Outpatient SFA SFA [id number] [facility] [place] 2023-08-30 14:05:13 2023-08-30 14:05:13 Outpatient SFA SFA [id number] [facility] [place] 2023-06-20 13:49:02 2023-06-20 13:49:02 Outpatient SFA SFA [id number] [facility] [place] 2023-04-17 13:00:19 2023-04-17 13:00:19 Outpatient SFA SFA [id number] [facility] [place] 2022-12-26 15:45:32 2022-12-26 15:45:32 Outpatient SFA SFA [id number] [facility] [place] 2022-12-13 17:03:33 2022-12-13 17:03:33 Outpatient SFA SFA [id number] [facility] [place] 2022-12-04 14:48:51 2022-12-04 14:48:51 Outpatient SFA SFA [id number] [facility] [place] 2022-11-15 13:54:59 2022-11-15 13:54:59 Outpatient SFA SFA [id number] [facility] [place] 2022-11-08 16:06:33 2022-11-08 16:06:33 Outpatient SFA SFA [id number] [facility] [place] 2022-10-24 08:45:00 2022-10-24 14:10:43 Office Visit Meagan Jovan [facility] [id number] [id number] [facility] 2022-08-21 16:45:11 2022-08-21 16:45:[address] [facility] [id number] Peter Baugh 2020-07-04 14:45:00 2020-07-04 14:45:00 Outpatient R JC GARZON [facility] [id number] [facility] 2020-07-04 14:28:36 2020-07-04 14:43:36 [facility] [id number] 350.1.13.10 4.2.7.2.686 [id number] [facility] 2020-06-07 08:53:00 2020-06-07 15:50:00 [facility] 1.2.840.114 350.1.13.10 4.2.7.2.686 [id number] [facility] 2020-06-06 11:24:06 2020-06-06 11:39:06 Laboratory Only Only, Adc Test Jose De Jesus Zaman [facility] [id number] 350.1.13.10 4.2.7.2.686 [id number] [facility] 2020-06-06 11:15:00 2020-06-06 11:15:00 Outpatient R [facility] [id number] [facility] 2020-06-02 16:50:42 2020-06-02 23:59:00 Hospital Encounter Jc Garzon [facility] [id number] 350.1.13.10 4.2.7.2.686 [id number] [facility] 2020-05-16 12:48:48 2020-06-02 11:35:39 Office Visit Jennifer Garzonnathan [facility] Medical Office Building 1.2.840.114 350.1.13.10 4.2.7.2.686 [id number] [facility] 2020-06-02 00:00:00 2020-06-02 00:00:00 Outpatient JC LIN [facility] [id number] [facility] 2020-05-16 13:00:00 2020-05-16 13:00:00 Outpatient JC LIN [facility] [id number] [facility] 2020-05-16 00:00:00 2020-05-16 00:00:00 Orders Only Doctor Unassigned, [place] [facility] [id number] 350.1.13.10 4.2.7.2.686 [id number] [facility] 2020-05-16 00:00:00 2020-05-16 00:00:00 Letter (Out) Jc Garzon [facility] Office Building [id number] 350.1.13.10 [id number] [id number] [facility] Results Test Description Test Time Test Comments Results Result Co mments Source [facility],US,[id number] 00:00:00* Test Item Value Reference Range Interpretation Comme nts PVR (URINE VOLUME) (test code = 5193) 2 ml 0-100 [facility], [id number] 09:20:14SPECIMEN NUMBER: [id number] CULTURE, URINE SPECIMEN NUMBER: [id number] SOURCE: URINE REPORT STATUS: FINAL FINAL REPORT: 04/26/2024 10,000 - 100,000 CFU/ML UROGENITAL ROSE PRESENT NO COMMON PATHOGENS UNLESS OTHERWISE INDICATED, ALL TESTING PERFORMED AT [facility] [address] [place] [address] INSIDE ACCOUNT EXECUTIVE: NAVIN LAM M.D. CLIA NUMBER [id number] [place]. [id number], [id number] 09:01:01SPECIMEN NUMBER: [id number] CULTURE, URINE SPECIMEN NUMBER: [id number] SOURCE: URINE REPORT STATUS: FINAL FINAL REPORT: 04/12/2024 <10,000 CFU/ML UROGENITAL ROSE PRESENT NO COMMON PATHOGENSHEMOGLOBIN [id number] 06:57:18* Test Item Value Reference Range Interpretation Comme nts HEMOGLOBIN A1c (test code = 55197) 5.0 % 4.2-5.6 LIPID [id number] 05:34:57* Test Item Value Reference Range Interpretation Comme nts CHOLESTEROL (test code = 2210) 146 MG/DL <200 TRIGLYCERIDES (test code = 2232) 79 MG/DL <150 HDL CHOLESTEROL (test code = 2220) 39 MG/DL >39 L CALC LDL CHOL (test code = 2237) 90 MG/DL <100 NOTE: CALCULATED LDL IS BASED ON REID-VALLADARES METHOD WHICHINCLUDES ADJUSTABLE TRIGLYCERIDE:VLDL CHOLESTEROL RATIO.THIS FACTOR VARIES BY MEASURED TRIGLYCERIDE AND NON-HDLCHOLESTEROL CONCENTRATIONS WITH INCREASED CALCULATED LDL SEENIN HIGHER TRIGLYCERIDE OR LOWER NON-HDL SPECIMENS. FOR MOREINFORMATION, SEE CLIENT ANNOUNCEMENT AT [email or web address] RISK RATIO LDL/HDL (test code = 223) 2.31 RATIO <3.55 COMPREHENSIVE METABOLIC [id number] 05:34:57* Test Item Value Reference Range Interpretation Comme nts GLUCOSE (test code = 2217) 80 MG/DL 70-99 BUN (test code = 220) 14 MG/DL 6-20 CREATININE (test code = 2214) 1.03 MG/DL 0.70-1.30 eGFR (2020 CKD-EPI) (test code = 28725) 107 ML/MIN/1.73 >60 CALC BUN/CREAT (test code = 2235) 14 RATIO 6-28 SODIUM (test code = 223) 140 MEQ/L 133-146 POTASSIUM (test code = 2228) 4.4 MEQ/L 3.5-5.4 CHLORIDE (test code = 2215) 101 MEQ/L 95-107 CARBON DIOXIDE (test code = 2206) 28 MEQ/L 19-31 CALCIUM (test code = 2209) 10.0 MG/DL 8.5-10.5 PROTEIN, TOTAL (test code = 2228) 7.5 G/DL 6.1-8.3 ALBUMIN (test code = 220) 4.7 G/DL 3.5-5.2 CALC GLOBULIN (test code = 224) 2.8 G/DL 2.0-3.5 CALC A/G RATIO (test code = 2234) 1.7 RATIO 1.0-2.6 BILIRUBIN, TOTAL (test code = 2207) 0.6 MG/DL <=1.2 ALKALINE PHOSPHATASE (test code = 2204) 101 U/L 56-182 AST (test code = 2218) 16 U/L 9-50 ALT (test code = 2219) 23 U/L 5-50 PSA, [id number] 05:32:52* Test Item Value Reference Range Interpretation Comme nts PSA, TOTAL (test code = 2606) 1.11 NG/ML <=4.00 NOTE: Methodolog y is Brian Naila Electrochemiluminescence Immunoassay traceable to WHO reference standard 96/760. CBC W/AUTO DIFF WITH [id number] 05:28:42* Test Item Value Reference Range Interpretation Comme nts WBC (test code = 1001) 6.6 K/UL 3.5-11.0 RBC (test code = 1002) 5.10 M/UL 4.50-6.10 HEMOGLOBIN (test code = 1003) 16.4 G/DL 13.5-17.0 HEMATOCRIT (test code = 1004) 48.8 % 40.0-51.0 MCV (test code = 1005) 95.7 fL 80.0-99.0 MCH (test code = 1006) 32.2 PG 25.0-33.0 MCHC (test code = 1007) 33.6 G/DL 31.0-36.0 RDW (test code = 1038) 12.3 % 11.5-15.0 NEUTROPHILS (test code = 1008) 67.5 % LYMPHOCYTES (test code = 1010) 23.8 % MONOCYTES (test code = 1011) 5.9 % EOSINOPHILS (test code = 1012) 2.0 % BASOPHILS (test code = 1013) 0.6 % IMMATURE GRANULOCYTES (test code = 1036) 0.2 % NUCLEATED RBCS (test code = 1065) 0.0 /100 WBC'S See_Comment [Automated messa ge] The system which generated this result transmitted reference range: 0.0. The reference range was not used to interpret this result as normal/abnormal. PLATELET COUNT (test code = 1015) 206 K/UL 130-400 ABSOLUTE NEUTROPHILS (test code = 1066) 4.43 K/UL 1.50-7.50 ABSOLUTE LYMPHOCYTES (test code = 1067) 1.56 K/UL 1.00-4.00 ABSOLUTE MONOCYTES (test code = 1068) 0.39 K/UL 0.20-1.00 ABSOLUTE EOSINOPHILS (test code = 1040) 0.13 K/UL 0.00-0.50 ABSOLUTE BASOPHILS (test code = 1069) 0.04 K/UL 0.00-0.20 ABS IMMATURE GRANULOCYTES (test code = 1020) 0.01 K/UL 0.00-0.10 ABS NUCLEATED RBCS (test code = 15569) 0.00 K/UL 0.00-0.11 HIV 1/2 4TH GEN, RFLX [id number] 05:06:39* Test Item Value Reference Range Interpretation Comme [facility] HIV 1/2 4TH GEN, RFLX CONF (test code = 3514) NON-REACTIVE NON-REACTIVE UNLESS OTHERWISE INDICATED, ALL TESTING PERFORMED AT [facility] [address] [place] [address] INSIDE ACCOUNT EXECUTIVE: NAVIN LAM M.D. CLIA NUMBER [id number] [place] [id number] VITAMIN D, 25 [id number] 04:21:41* Test Item Value Reference Range Interpretation Comme [facility] VITAMIN D, 25 OH (test code = 4958) 21 NG/ML SEE BELOW L EFFECTIVE 2022, PLEASE NOTE NEW METHODOLOGY IS ELECTROCHEMILUMINESCENCE BINDING ASSAY. NOTE: 25-HYDROXYVITAMIN D ASSAY INCLUDES 25-HYDROXYVITAMIN D2 AND D3. INTERPRETIVE RANGES PEDIATRIC (<17 YEARS) . . . . . . . . . . . NG/ML 20-100ADULT: INSUFFICIENT . . . . . . . . . . . . . . NG/ML <20 SUBOPTIMAL . . . . . . . . . . . . . . . NG/ML 20-29 OPTIMAL . . . . . . . . . . . . . . . . . NG/ML 30-100 UNLESS OTHERWISE INDICATED, ALL TESTING PERFORMED AT [facility] [address] [place] [address] INSIDE ACCOUNT EXECUTIVE: NAVIN LAM M.D. CLIA NUMBER [id number] [place]. [id number] TSH, THIRD [id number] 04:20:48* Test Item Value Reference Range Interpretation Comme nts TSH, THIRD GENERATION (test code = 282) 0.802 UIU/ML 0.400-4.100 COMPREHENSIVE METABOLIC [id number] 04:20:16* Test Item Value Reference Range Interpretation Comme nts GLUCOSE (test code = 2216) 96 MG/DL 70-99 BUN (test code = 2207) 18 MG/DL 6-20 CREATININE (test code = 2213) 0.93 MG/DL 0.70-1.30 eGFR (2020 CKD-EPI) (test code = 48913) 121 ML/MIN/1.73 >60 CALC BUN/CREAT (test code = 2234) 19 RATIO 6-28 SODIUM (test code = 2230) 144 MEQ/L 133-146 POTASSIUM (test code = 2227) 4.5 MEQ/L 3.5-5.4 CHLORIDE (test code = 2214) 105 MEQ/L 95-107 CARBON DIOXIDE (test code = 2205) 23 MEQ/L 19-31 CALCIUM (test code = 2208) 9.8 MG/DL 8.5-10.5 PROTEIN, TOTAL (test code = 2228) 7.3 G/DL 6.1-8.3 ALBUMIN (test code = 2200) 4.8 G/DL 3.5-5.2 CALC GLOBULIN (test code = 2240) 2.5 G/DL 2.0-3.5 CALC A/G RATIO (test code = 2233) 1.9 RATIO 1.0-2.6 BILIRUBIN, TOTAL (test code = 2206) 0.4 MG/DL <=1.2 ALKALINE PHOSPHATASE (test code = 2203) 97 U/L 56-182 AST (test code = 2217) 32 U/L 9-50 ALT (test code = 221) 50 U/L 5-50 LIPID [id number] 04:20:16* Test Item Value Reference Range Interpretation Comme nts CHOLESTEROL (test code = 2209) 140 MG/DL <200 TRIGLYCERIDES (test code = 223) 150 MG/DL <150 H HDL CHOLESTEROL (test code = 2219) 39 MG/DL >39 L CALC LDL CHOL (test code = 2236) 76 MG/DL <100 NOTE: CALCULATED LDL IS BASED ON REID-VALLADARES METHOD WHICHINCLUDES ADJUSTABLE TRIGLYCERIDE:VLDL CHOLESTEROL RATIO.THIS FACTOR VARIES BY MEASURED TRIGLYCERIDE AND NON-HDLCHOLESTEROL CONCENTRATIONS WITH INCREASED CALCULATED LDL SEENIN HIGHER TRIGLYCERIDE OR LOWER NON-HDL SPECIMENS. FOR MOREINFORMATION, SEE CLIENT ANNOUNCEMENT AT [email or web address] RISK RATIO LDL/HDL (test code = 2238) 1.95 RATIO <3.55 CBC W/AUTO DIFF WITH [id number] 03:03:55* Test Item Value Reference Range Interpretation [...] = 1065) 0.0 /100 WBC'S See_Comment [Automated Mobile System 7a ge] The system which generated this result [...] 0.00-0.10 ABS NUCLEATED RBCS (test code = 91351) 0.00 K/UL 0.00-0.11 CT/NG, NAAT, [id number] 15:55:19* Test Item Value Reference Range Interpretation Comme nts CHLAMYDIA, NAAT, URINE (test code = 48656) NEGATIVE NEGATIVE Testing is perfo rmed with Brian NAILA 6800/8800 systems usingreal-time polymerase chain reaction (PCR) method. A negative result does not exclude low level infection, specimensampling error, or collection error. GONORRHEA, NAAT, URINE (test code = 01979) NEGATIVE NEGATIVE Testing is perfo rmed with Brian NAILA 6800/8800 systems usingreal-time polymerase chain reaction (PCR) method. A negative result does not exclude low level infection, specimensampling error, or collection error. RPR REFLEX TO T. PALLIDUM - [id number] 03:40:20* Test Item Value Reference Range Interpretation Comme nts RPR (test code = 31603) NON-REACTIVE NON-REACTIVE RPR TITER (test code = 3500) NOT INDIC. TITER NOT INDIC. HIV 1/2 4TH GEN, RFLX [id number] 03:36:50* Test Item Value Reference Range Interpretation Comme nts HIV 1/2 4TH GEN, RFLX CONF ( test code = 3514) NON-REACTIVE NON-REACTIVE HEPATITIS PANEL, [id number] 03:36:50* Test Item Value Reference Range Interpretation Comme nts HEPATITIS A IgM (test code = 46206) NON-REACTIVE NON-REACTIVE HEPATITIS B CORE IgM (test code = 4644) NON-REACTIVE NON-REACTIVE HEPATITIS B SURF AG (test code = 2739) NON-REACTIVE NON-REACTIVE HEPATITIS C ANTIBODY (test code = 4675) NON-REACTIVE NON-REACTIVE INTERPRETATION HEPATITIS A: (test code = 2552) (NOTE) Hepatitis A serology shows no evidence of acute hepatitis A. INTERPRETATION HEPATITIS B: (test code = 59606) (NOTE) Hepatitis B serology shows no evidence of acute hepatitis B andno indication of exposure to hepatitis B virus in the previous landon eight months. INTERPRETATION HEPATITIS C: (test code = 22369) (NOTE) Hepatitis C serology shows no evidence of exposure to hepatitisC virus at this time. It can take up to 12 months after exposure tothe hepatitis C virus for antibodies to become detectable in the blood in certain patients. HERPES SIMPLEX 1 AB, [id number] 03:36:50* Test Item Value Reference Range Interpretation Comme nts HERPES SIMPLEX 1 AB, IgG (test code = 86596) 7.400 INDEX SEE BELOW H INTERPRETATION U NITS RANGE ----- ----- NON-REACTIVE INDEX <1.000 REACTIVE INDEX >=1.000 HERPES SIMPLEX 2 AB, [id number] 03:36:50* Test Item Value Reference Range Interpretation Comme nts HERPES SIMPLEX 2 AB, IgG (test code = 82341) 0.072 INDEX SEE BELOW INTERPRETATION U NITS RANGE ----- ----- NON-REACTIVE INDEX <1.000 REACTIVE INDEX >=1.000 UNLESS OTHERWISE INDICATED, ALL TESTING PERFORMED AT [facility] [address] [place] [address] INSIDE ACCOUNT EXECUTIVE: NAVIN LAM M.D. [place] NUMBER [id number] [place]. [id number] CULTURE, [id number] 16:27:10SPECIMEN NUMBER: [id number] CULTURE, URINE SPECIMEN NUMBER: [id number] SPECIMEN COMMENT: URINE SOURCE: URINE REPORT STATUS: [...] CFU/ML UROGENITAL ROSE PRESENT NO COMMON PATHOGENS [facility] has important pathology staff changes effective 10/17/2022. New pathology staff will provide uninterrupted, excellent patient care and clinical consultation. See URL: [email or web address]. UNLESS OTHERWISE INDICATED, ALL TESTING PERFORMED AT [facility] [address] [place] [address] INSIDE ACCOUNT EXECUTIVE: NAVIN LAM M.D. CLIA NUMBER [id number] [place]. [id number], THIRD [id number] 06:15:03* Test Item Value Reference Range Interpretation Comme nts TSH, THIRD GENERATION (test code = 2821) 0.911 UIU/ML 0.500-4.300 [id number] 06:15:03* Test Item Value Reference Range Interpretation [...] 4.0-12.0 UNLESS OTHERWISE INDICATED, [facility] [address] [place] [address] INSIDE ACCOUNT EXECUTIVE: SIRI COLEY M.D. CLIA NUMBER [id number] [place]. [id number] LIPID [id number] 03:17:30* Test Item Value Reference Range Interpretation [...] SPECIMENS. FOR MOREINFORMATION, SEE CLIENT ANNOUNCEMENT AT [email or web address] RISK RATIO LDL/HDL (test code = 2238) 2.37 RATIO <3.55 COMPREHENSIVE METABOLIC [id number] 03:17:30* Test Item Value Reference Range Interpretation Comme nts GLUCOSE (test code = 2217) 85 MG/DL 70-99 BUN (test code = 220) 22 MG/DL 5-18 H CREATININE (test code = 2214) 0.96 MG/DL 0.70-1.30 EFFECTIVE 07/31/2021, [facility] HAS IMPLEMENTED THE NKF-ASN RECOMMENDED KD-EPI EGFR REFIT CALCULATION THAT DOES NOT INCLUDE A COEFFICIENT FORRACE. FOR MORE INFORMATION, SEE ANNOUNCEMENT [email or web address] eGFR (2020 CKD-EPI) (test code = 36561) NO CALC ML/MIN/1.73 >60 NOTE: 2020 CKD-EPI is not validated for pediatric populations. For patients less than 19 years old, consider [facility] pediatric eGFR calculator [email or web address] [email or web address] CALC BUN/CREAT (test code = 2234) 23 RATIO 6-28 SODIUM (test code = 2230) 140 MEQ/L 133-146 POTASSIUM (test code = 2228) 4.6 MEQ/L 3.5-5.4 CHLORIDE (test code = 2215) 99 MEQ/L 95-107 CARBON DIOXIDE (test code = 2206) 29 MEQ/L 19-31 CALCIUM (test code = 2209) 10.3 MG/DL 8.4-10.2 H PROTEIN, TOTAL (test code = 222) 8.2 G/DL 6.0-8.0 H ALBUMIN (test code = 220) 5.1 G/DL 3.6-5.2 CALC GLOBULIN (test code = 2240) 3.1 G/DL 2.0-3.5 CALC A/G RATIO (test code = 2234) 1.6 RATIO 1.0-2.6 BILIRUBIN, TOTAL (test code = 2207) 0.2 MG/DL See_Comment [Automated me ssage] The system which generated this result transmitted reference range: <=1.2. The reference range was not used to interpret this result as normal/abnormal. ALKALINE PHOSPHATASE (test code = 2203) 115 U/L 80-302 AST (test code = 2218) 15 U/L 9-55 ALT (test code = 2219) 19 U/L 5-50 HEMOGLOBIN [id number] 02:12:36* Test Item Value Reference Range Interpretation Comme nts HEMOGLOBIN A1c (test code = 80337) 5.0 % 4.2-5.6 CBC W/AUTO DIFF WITH [id number] 01:35:29* Test Item Value Reference Range Interpretation [...] = 1065) 0.0 /100 WBC'S See_Comment [Automated Mobile System 7a ge] The system which generated this result [...] 0.00-0.10 ABS NUCLEATED RBCS (test code = 49540) 0.00 K/UL 0.00-0.13 US SCROTUM AND [id number] 02:33:26No evidence for testicular torsion. No evidence for epididymo-orchitis. Questionable bowel loop in the superior right inguinal canal with Valsalvamaneuver. This may reflect an inguinal hernia, but issomewhat equivocal. RL: 460 AF: [id number] Ordering physician: JC GARZON INDICATION: Right groin [...] inguinal hernia, but is somewhat equivocal.RL: 460AF: [id number] signed by Danielle Dubose MD, PhD at 06/02/2020 9:[facility] [id number] 18:10:00* Test Item Value Reference Range Interpretation [...] 3267) Lab Interpretation (test cod e = 57876-7) Normal [facility] URINALYSIS, [id number] 18:10:00 * Test Item Value Reference Range [...] 3267) Lab Interpretation (test cod e = 83228-8) Normal [facility]
[2024-12-12] MEDS ORDERED: NA CHLORIDE 0.9% 1,000 ML ONE (16:31)
[2024-12-12 17:19] LABS: Absolute Eosinophils 0.2 K/uL (0-0.5); Absolute Lymphocytes (CBC) 1.7 K/uL (0.7-4.9); Absolute Monocytes 0.6 K/uL (0.1-1.3); Absolute Neutrophil 4.5 K/uL (1.8-8.0); Basophils % 0.5 % (0-1.3); Eosinophils % 2.2 % (0-4.4); Lymphocytes % 24.1 % (15.3-44.8); MCH 31.9 pg (27.0-35.0); MCHC 34.8 g/dL (32.0-36.0); MCV 91.7 fL (80-100); MPV 9.6 fL (7.6-11.3); Monocytes % 8.9 % (3.3-12.3); Neutrophils % 64.3 % (41.7-73.7); Nucleated Red Blood Cells % 0.1 % (0-0); Platelets 198 thou/uL (152-406); RBC Red Blood Cell Count 4.69 M/uL (4.33-5.43); Red Cell Distribution Width 12.5 % (12.1-15.2)
[2024-12-12 17:28] LABS: Albumin 3.6 g/dL (3.4-5.0); Anion Gap 7.8 mEq/L (5.0-15.0); Bilirubin Total 0.4 mg/dL (0.2-1.0); Globulin 3.6 g/dL (2.3-3.5); Potassium 3.8 mEq/L (3.5-5.1); Protein, Total 7.2 g/dL (6.4-8.2)
--- NOTE | 2024-12-12 18:27 | RAD REPORT ---
EXAMINATION: Abdomen Pelvis W Contrast CLINICAL INDICATION: Male, 19 years old.ABD PAIN TECHNIQUE: CT abdomen and pelvis was performed, after the administration of IV contrast, as per [facility] protocol. Axial, sagittal and coronal reconstructions were obtained. One or more of the following dose reduction techniques were used: Automated exposure control, adjustment of the mA and/o r kV according to patient size, and/or iterative reconstruction. Unless otherwise specified, incidental findings do not require dedicated imaging follow-up. [id number]. COMPARISON: No prior exam. FINDINGS: LOWER CHEST: No acute process identified.No significant pericardial effusion. UPPER GI: No significant abnormality. LIVER: No significant focal abnormality. GALLBLADDER/BILE DUCTS: No biliary ductal dilatation.? PANCREAS: No mass, ductal dilation, or marc-pancreatic fluid. SPLEEN: Unremarkable. ADRENALS: No adrenal masses. KIDNEYS AND URETERS: No hydronephrosis.No suspicious renal mass. ABDOMINAL AORTA AND OTHER VESSELS: Normal caliber aorta and IVC. PERITONEUM: No abnormal free fluid. No free air. LYMPH NODES: No pathologic lymphadenopathy. ABDOMINAL WALL: Unremarkable SMALL BOWEL/COLON: Small bowel has normal course and caliber. No colonic wall thickening or pericolon ic inflammatory changes.Normal appendix. Mild diverticulosis without diverticulitis. URINARY BLADDER: Underdistended but grossly unremarkable. REPRODUCTIVE ORGANS: No pathologic process. MUSCULOSKELETAL: No acute or suspicious osseous abnormality. ADDITIONAL FINDINGS: None. IMPRESSION: No acute findings within the abdomen or pelvis. No appendicitis.
--- NOTE | 2024-12-12 18:31 | ER ---
Nurse's Notes [facility] Name: Avi Ellis Age: 19 yrs Sex: Male : 2005 Arrival Date: 12/12/2024 Time: 16:18 Bed 10 Private MD: Diagnosis: Lower abdominal pain, unspecified Presentation: 12/12 16:24 Chief complaint: Patient states: lower abd pain X 2 weeks, there is orange red in my iw stool for the two weeks. Coronavirus screen: At this time, the client does not indicate any symptoms associated with coronavirus-19. Ebola Screen: No symptoms or risks identified at this time. Initial Sepsis Screen: Does the patient meet any 2 criteria? No. Patient's initial sepsis screen is negative. Does the patient have a suspected source of infection? No. Patient's initial sepsis screen is negative. Risk Assessment: Do you want to hurt yourself or someone else? Patient reports no desire to harm self or others. Onset of symptoms was November 28, 2024. 16:24 Method Of Arrival: Ambulatory iw 16:24 Acuity: ESTRADA 3 iw Historical: - Allergies: 16:26 No Known Allergies; iw - Home Meds: 16:26 None [Active]; iw - PMHx: 16:26 Anxiety; Asthma; depressive disorder; iw - PSHx: 16:26 Adenoid excision; hernia repair; wisdom teeth; iw - Immunization history:: Adult Immunizations not up to date. - Infectious Disease History:: Denies. - Social history:: Smoking status: Patient denies any tobacco usage or history of. Assessment: 16:45 Reassessment: Patient is alert, oriented x 3, equal unlabored respirations, skin aa5 warm/dry/pink. 18:40 Reassessment: Patient is alert, oriented x 3, equal unlabored respirations, skin aa5 warm/dry/pink. Vital Signs: 16:24 BP 132 / 82; Pulse 80; Resp 16; Temp 98.5; Pulse Ox 98% on R/A; Weight 100.88 kg; iw Height 5 ft. 5 in. ; Pain 7/10; 16:24 Body Mass Index 37.01 (100.88 kg, 165.1 cm) iw 16:24 Pain Scale: Adult iw ED Course: 16:22 Patient arrived in ED. cj3 16:26 Triage completed. iw 16:26 Karlee Brower FNP-C is PHCP. kb 16:26 Shantanu Pringle MD is Attending Physician. kb 16:26 Arm band placed on. iw 16:45 Initial lab(s) drawn, by me, sent to lab. Inserted saline lock: 20 gauge in right aa5 antecubital area, using aseptic technique. Blood collected. Flushed with 10 mL NS. 18:15 PHCP role handed off by Karlee Brower FNP-C dr5 18:15 Tal Mathews FNP-C is PHCP. dr5 18:20 CT Abd/Pelvis - IV Contrast Only In Process Unspecified. EDMS 18:34 Aba Durán MD is Referral Physician. dr5 18:40 No provider procedures requiring assistance completed. IV discontinued, intact, aa5 bleeding controlled, No redness/swelling at site. Pressure dressing applied. Administered Medications: 16:50 Drug: NS 0.9% IV 1000 ml IV at 1000 ml once; to be given as a bolus over 60 minutes aa5 Route: IV; Rate: 1000 ml; Site: right antecubital; 17:50 Follow up: IV Status: Completed infusion; IV Intake: 1000ml aa5 Intake: 17:50 IV: 1000ml; Total: 1000ml. aa5 Outcome: 18:30 Discharge ordered by . dr5 18:40 Discharged to home ambulatory, aa5 18:40 Condition: stable 18:40 Discharge instructions given to patient, Instructed on discharge instructions, follow up and referral plans. Demonstrated understanding of instructions, follow-up care, 18:41 Patient left the ED. aa5 Signatures: Dispatcher [employer] EDNM Karlee Brower FNP-C FNP-Elvia Kaur, RN RN Patti Weeks RN RN aa5 Tal Mathews FNP-C FNP-Cdr5 Daja Tavares cj3
--- NOTE | 2024-12-12 18:31 | EDPHYS ---
Physician Documentation [facility] Name: Avi Ellis Age: 19 yrs Sex: Male : 2005 Arrival Date: 12/12/2024 Time: 16:18 Bed 10 Private MD: ED Physician Shantanu Pringle HPI: 12/12 17:03 This 19 yrs old Male presents to ER via Ambulatory with complaints of Low Abdominal kb Pain, Bloody Stools. 17:03 Patient is a 19-year-old male who presents for left lower quadrant pain and possible kb blood in stool that started 2 weeks ago. Denies fever, nausea, vomiting, diarrhea. States symptoms are not improving so that is what brought him in today. Patient is concerned for colon cancer because his father has a history of that.. Historical: - Allergies: 16:26 No Known Allergies; iw - Home Meds: 16: None [Active]; iw - PMHx: 16:26 Anxiety; Asthma; depressive disorder; iw - PSHx: 16:26 Adenoid excision; hernia repair; wisdom teeth; iw - Immunization history:: Adult Immunizations not up to date. - Infectious Disease History:: Denies. - Social history:: Smoking status: Patient denies any tobacco usage or history of. ROS: 17:01 Constitutional: As per HPI kb Exam: 17:01 Constitutional: This is a well developed, well nourished patient who is awake, alert, kb and in no acute distress. Head/Face: Normocephalic, atraumatic. ENT: Moist Mucous membranes Cardiovascular: Regular rate Respiratory: Respirations even and unlabored. No increased work of breathing. Talking in full sentences Skin: Warm, dry with normal turgor. Normal color. MS/ Extremity: Pulses equal, no cyanosis. Neurovascular intact. Full, normal range of motion. Neuro: Awake and alert, GCS 15, oriented to person, place, time, and situation. 17:01 Abdomen/GI: Inspection: abdomen appears normal, Bowel sounds: normal, Palpation: soft, in all quadrants, moderate abdominal tenderness, in the left lower quadrant, Vital Signs: 16:24 BP 132 / 82; Pulse 80; Resp 16; Temp 98.5; Pulse Ox 98% on R/A; Weight 100.88 kg; iw Height 5 ft. 5 in. ; Pain 7/10; 16:24 Body Mass Index 37.01 (100.88 kg, 165.1 cm) iw 16:24 Pain Scale: Adult iw MDM: 16:27 Medical Screening Exam initiated kb 17:03 Differential diagnosis: GI bleed, diverticulitis, colitis. Data reviewed: vital signs, kb nurses notes. 18:10 Transition of care: After a detail discussion of the patient's case, care is kb transferred to [facility]. 12/12 16:27 Order name: CBC with Diff; Complete Time: 17:22 kb 12/12 16:27 Order name: CMP; Complete Time: 17:30 kb 12/12 16:27 Order name: Lipase; Complete Time: 17:30 kb 12/12 16:30 Order name: CT Abd/Pelvis - IV Contrast Only; Complete Time: 18:29 kb 12/12 16:27 Order name: IV Saline Lock; Complete Time: 16:53 kb 12/12 16:27 Order name: Labs collected and sent; Complete Time: 16:53 kb Administered Medications: 16:50 Drug: NS 0.9% IV 1000 ml IV at 1000 ml once; to be given as a bolus over 60 minutes aa5 Route: IV; Rate: 1000 ml; Site: right antecubital; 17:50 Follow up: IV Status: Completed infusion; IV Intake: 1000ml aa5 Disposition Summary: 12/12/24 18:30 Discharge Ordered Notes: Location: Home dr5 Condition: Stable dr5 Diagnosis - Lower abdominal pain, unspecified dr5 Followup: dr5 - With: Emergency Department - When: As needed - Reason: Worsening of condition Followup: dr5 - With: Private Physician - When: 1 - 2 days - Reason: Recheck today's complaints, Continuance of care, Re-evaluation by your physician Followup: dr5 - With: Aba Druán MD - When: 1 - 2 days - Reason: Recheck today's complaints, Continuance of care, Re-evaluation by your physician Discharge Instructions: - Discharge Summary Sheet dr5 - Abdominal Pain, Adult dr5 Forms: - Medication Reconciliation Form dr5 - Patient Portal Instructions dr5 - Leadership Thank You Letter dr5 Addendum: 12/14/2024 09:04 Co-signature as Attending Physician, Shantanu Pringle MD I reviewed the patient's care r n provided by the Advanced Practice Provider and agree with the diagnosis and treatment plan. Signatures: Dispatcher [employer] EDMS Karlee Brower, BENTLEY-C [employer] COMM[employer]ICATIONS ADMINISTRATOR-Ckb Elvia Sewell, RN RN Shantanu Rendon MD MD rn Calderon, Audri, KALINA RN aa5 Tal Mathews, FARNAZ ROMANP-Cdr5 Corrections: (The following items were deleted from the chart) 12/12 16:31 16:31 Abdomen Pelvis W Con+CT.RAD.BRZ ordered. EDMS EDMS
[2024-12-14 20:51] VITALS: BP 132/82; TEMP 98.5; O2SAT 98
== END 2024-12-12 18:41 | disposition home or self-care (01) ==
LOC: ER 16:18
DX: R10.32 Left lower quadrant pain (principal)
CPT/HCPCS: 85025; 36415; 83690; 80053; 74177; 96360; 99284; Q9967; J7030